=== PATIENT | male | born 1955 | race Caucasian/White ===

== ENCOUNTER 2024-12-01 09:53 | Outpatient (CLI) | payer MEDICARE ==
[~2024-12-01 09:53] MED LIST: iohexol 350 MG/ML 50ML vial IV ONE; iohexol 350MG/ML 100ml bottle IV ONE
[2024-12-01 10:26] LABS: ALBUMIN 4.2 G/DL (3.4-5.0); ANION GAP 12 (8-16); BLOOD UREA NITROGEN 8 MG/DL (7-18); BUN/CREATININE RATIO 8.9 (10.0-20.0); CALCIUM 9.3 MG/DL (8.5-10.1); CHLORIDE 105 MMOL/L (99-107); GLUCOSE 138 MG/DL (70-104); SODIUM 144 MMOL/L (135-145); TOTAL CARBON DIOXIDE 27.5 MMOL/L (24-32); eGFR 84 ML/MIN
[2024-12-01 10:35] LABS: POTASSIUM 4.6 MMOL/L (3.5-5.1)
--- NOTE | 2024-12-02 04:55 | RADIOLOGY REPORT ---
Examination: CT CTA ABDOMEN LOWER EXTR RUNOFF CLINICAL HISTORY: ATHSCL HO-CHUNK ARTERIES OF EXTRM W INTRMT BRIGETTE, BI Comparison: None Technique: Using helical technique, CT data from the lung bases through the toes was obtained during rapid IV contrast infusion. The examination was timed to the arterial system to generate a CT angiogr aphic study. 3D images were generated at an independent work station. Dose reduction techniques inclu ded automated exposure control. Radiation Dose Information: CT Dose: CTDI volume is 4.4 mGy. Dose-length product is 1716 mGy*cm Findings: Vascular: Abdominal aorta: Normal caliber, patent Celiac artery: Patent SMA: Patent Renal arteries: Patent CHAD: Patent Right lower extremity: Common iliac artery: Patent External iliac artery: Patent Internal iliac artery: Patent Common femoral artery: Patent. Multiple high-grade tandem stenoses. Profunda femoral artery: Patent Superficial femoral artery: Patent. Multiple high-grade tandem stenoses. Popliteal artery: Patent Anterior tibial artery: Patent Peroneal tibial trunk: Patent Peroneal artery: Patent Posterior tibial artery: Patent Dorsalis pedis artery: Faint flow. Left lower extremity: Common iliac artery: Patent External iliac artery: Patent Internal iliac artery: Patent Common femoral artery: Patent. Multiple high-grade tandem stenoses. Profunda femoral artery: Patent Superficial femoral artery: Patent. Multiple high-grade tandem stenosis. Popliteal artery: Patent Anterior tibial artery: Patent Peroneal tibial trunk: Patent Peroneal artery: Patent Posterior tibial artery: Patent Dorsalis pedis artery: Faint flow. Portal/mesenteric veins: normal Abdominal systemic veins: normal Abdomen/Pelvis: Liver: Hepatic steatosis.. Left hepatic lobe cyst measures 1.1 cm. Biliary System: Gallbladder: Normal Bile Ducts: No intrahepatic or extrahepatic biliary ductal dilation. Spleen: No splenomegaly or focal splenic lesion. Pancreas: No masses or ductal dilation. Adrenals: Normal. Urinary System: Kidneys and Ureters: Normal in size and location. No renal masses. No renal or ureteral calculi. No hydronephrosis or hydroureter. Bladder: Normal. GI System: Small hiatal hernia. Diverticulosis. Appendix is normal. Vasculature: Arteries: Diffuse Vascular atherosclerotic calcifications. No abdominal aortic aneurysm. Lymph nodes: No lymphadenopathy. Peritoneal cavity and surface: No free fluid. No pneumoperitoneum. Soft Tissues: Small fat and bowel containing right inguinal hernia. Reproductive Organs: Prostatomegaly. Bones: No acute fracture or aggressive osseous lesion. Impression: Diffuse vascular atherosclerotic disease. Patent bilateral common femoral and superficial femoral arteries with multiple high-grade tandem sten oses. 2 vessel arterial flow into the right and left foot with faint to minimal flow visualized via the do rsalis pedis artery. Abdomen/Pelvis: 1. No acute abdominal pelvic process.
== END 2024-12-01 23:59 | disposition home or self-care (01) ==
LOC: RAD 09:53
PROVIDERS: ATTEND Internal Medicine Interventional Cardiology
DX: K76.0 Fatty (change of) liver, not elsewhere classified (principal); I70.213 Atherosclerosis of native arteries of extremities with intermittent claudication, bilateral legs; K76.89 Other specified diseases of liver; N40.0 Benign prostatic hyperplasia without lower urinary tract symptoms; K44.9 Diaphragmatic hernia without obstruction or gangrene; K57.90 Diverticulosis of intestine, part unspecified, without perforation or abscess without bleeding; K40.90 Unilateral inguinal hernia, without obstruction or gangrene, not specified as recurrent; I70.8 Atherosclerosis of other arteries
CPT/HCPCS: 36415; 75635; 80048; Q9967

== ENCOUNTER 2025-05-31 08:32 | Outpatient (CLI) | payer MEDICARE ==
[~2025-05-31 08:32] MED LIST changes: +ASCO10004 PO; +ASPI-1265 PO; +ATOR40TA72 PO; +CLON1TAB12 PO; +EZET10TA80 PO; +FAMO20TA8 PO; +ISOS60TA71 PO; +LISI5TAB22 PO; +METO25TA6 PO; +OMEG100037 PO; -iohexol 350 MG/ML 50ML vial IV ONE; -iohexol 350MG/ML 100ml bottle IV ONE
--- NOTE | 2025-05-31 12:42 | VASCULAR REPORT ---
Ankle Brachial Index - Single Level Date: 05/31/2025 09:55 AM Clinical History: Claudication, bilateral femoral endarterectomy x1 month Comparison: None Risk Factors History of PAD: Bilaterally Hyperlipidemia Cardiac Disease Smoking Surgery/Intervention Bilateral common iliac stents Bilateral femoral endarterectomy Pressures/Indices Right NATHAN Left AB Brachial 130mmHg Brachial 136mmHg Ankle(PT) NCmmHg Ankle(PT) Too lowmmHg Ankle(DP) 58mmHg 0.42 Ankle(DP) 68mmHg 0.50 CONCLUSION 1. Right ankle-brachial index: 0.42, suggesting moderate disease/borderline severe disease at rest. 2. Left ankle-brachial index: 0.50, suggesting moderate disease at rest. 3. Monophasic flow visualized in the pedal arteries bilaterally.
--- NOTE | 2025-05-31 12:43 | VASCULAR REPORT ---
The above named patient was referred for a NON-INVASIVE ABDOMINAL AORTA EVALUATION. The evaluation includes grayscale imaging, color flow Doppler and spectral analysis of the abdominal aorta and iliac arteries. Patient OUT-PATIENT [facility] Follow-up for bilateral common iliac stents placed 11/2024 Risk Factors PAT Smoking Surgery/Intervention Bilateral common iliac stents Duplex Results A/P Transverse Longitudinal Proximal Aorta 1.61cm 1.64cm 1.63cm Mid Aorta 1.63cm 1.63cm 1.64cm Distal Aorta 1.62cm 1.61cm 1.65cm Rt. Common Iliac 1.09cm 1.05cm Arterommon Iliac 1.48cm 1.36cm Artery Doppler Velocity Waveform Proximal Aorta 270.0 cm/sec Monophasic Aorta Mid. 377.0 cm/sec Monophasic Distal Aorta 89.0 cm/sec Monophasic Rt. Common Iliac Artery 67.0 cm/sec Monophasic Lt. Common Iliac Artery 66.0 cm/sec Monophasic Aneurysm Monophasic CONCLUSION Calcified plaque seen throughout the abdominal aorta and iliac arteries. Possible moderate to severe stenosis seen in the mid abdominal aorta. Difficulty assessing possible stenosis due to calcification and elevated velocities obtained in the proximal aorta, which could indicate disease in the thoracic aorta. No abdominal aortic aneurysm visualized. Visualized common iliac stents appear patent bilaterally. Common iliac stents do not appear to be kissing stents. External iliac arteries appear patent bilaterally. Monophasic flow seen throughout the abdominal aorta and iliac arteries bilaterally. Possible borderline ectatic left common iliac artery seen, difficulty obtaining accurate diameter measurements due to bowel gas. Tech note* visualized disease during today's exam appears chronic, no acute findings during today's exam. Patient was sent home and preliminary findings faxed to ordering facility.
--- NOTE | 2025-05-31 12:44 | VASCULAR REPORT ---
BILATERAL Lower Extremity Arterial Duplex Date: 05/31/2025 09:22 AM Clinical History: PAD Comparison: VASC VL NATHAN on DOS: 05/31/25, VASC VL AORTA/ILIAC/GRAFT on DOS: 05/31/25, CT CTA ABDOMEN LOWER EXTR RUNOFF on DOS: 12/01/24 Technique: Duplex Doppler evaluation including color Doppler and spectral/pulsed waveform analysis of the lower extremity arteries was performed. Finding: Risk Factors History of Lower Extremity PAD: Bilaterally Hyperlipidemia Cardiac Disease Smoking Surgery/Intervention Bilateral common iliac stents, bilateral femoral endarterectomy VELOCITY AND DOPPLER WAVEFORM ANALYSIS RIGHT cm/se Waveform Severity LEFT cm/se Waveform Severity c dCFA 44.3 Monophasic dCFA 25.1 Monophasic Prof Fem 36.4 Monophasic Prof Fem 57.5 Monophasic Moderate 50-79% Art. Art. Fem Art 43.9 Monophasic Fem Art 50.9 Monophasic Prox. Prox. Fem Art 38.3 Multiphasic Fem Art 36.5 Monophasic Mid Mid. Fem Art 26.8 Monophasic Fem Art 88.2 Monophasic Moderate 50-79% Dist Dist. Pop Art(AK) 29.2 Monophasic Pop Art(AK) 32.9 Monophasic Pop Art(BK) 27.6 Monophasic Pop Art(BK) 40.7 Monophasic [employer] Dist. 11.7 Monophasic [employer] Dist. 13.3 Monophasic Per Art Dist. 8.5 Monophasic Per Art Dist. 10.1 Monophasic VU Dist. 11.3 Monophasic VU Dist. 14.8 Monophasic CONCLUSION Moderate calcified plaque seen throughout bilateral lower extremities. Monophasic flow noted in the common femoral artery bilaterally, indicating inflow disease. Possible moderate stenosis seen in the right tibioperoneal trunk artery, left profunda femoral artery, and left distal superficial femoral artery. A prominent flow reversal was also seen in the distal anterior tibial artery/proximal dorsalis pedis artery bilaterally, possibly indicating a distal obstruction. Monophasic flow noted throughout bilateral lower extremities.
== END 2025-05-31 23:59 | disposition home or self-care (01) ==
LOC: VAS 08:32
PROVIDERS: ATTEND Nurse Practitioner
DX: I73.9 Peripheral vascular disease, unspecified (principal); I70.0 Atherosclerosis of aorta; I70.8 Atherosclerosis of other arteries
CPT/HCPCS: 93922; 93925; 93978